=== PATIENT | female | born 1995 | race Caucasian/White ===

== ENCOUNTER 2018-09-26 16:23 | Emergency (ER) | payer OTHER ==
[~2018-09-26] VITALS: Ht 152.4 cm; Wt 44.1 kg
[2018-09-26] MEDS ORDERED: IBUP80TA PO (16:39)
[2018-09-26] MEDS ORDERED: IBUP-1022 PO (17:35)
[2018-09-26] MEDS ORDERED: MISO200T56 PO (17:39)
[2018-09-26] MEDS ORDERED: NORCO, ANEXSIA 5/325MG TABLET (HYDROcodone/ACETAMINOPHEN) PO ONE (18:00)
[2018-09-26 18:48] LABS: BASO % 0.1 % (0.0-1.0); EOS % 0.1 % (0.0-3.0); HEMATOCRIT 42.1 % (36.0-47.0); HEMOGLOBIN 13.8 g/dl (12.0-15.5); LYMPH # 0.9 10^3/uL (1.5-6.5); LYMPH % 6.6 % (24.0-44.0); MEAN CORPUSCULAR HEMOGLOBIN 28.1 pg (27.0-33.0); MEAN CORPUSCULAR HGB CONC 32.8 g/dl (32.0-36.5); MEAN CORPUSCULAR VOLUME 85.7 fl (80.0-96.0); MONO # 0.5 10^3/uL (0.0-0.8); MONO % 3.4 % (0.0-5.0); NEUTROPHILS # 12.3 10^3/uL (1.8-7.7); NEUTROPHILS % 89.5 % (36.0-66.0); PLATELET COUNT, AUTOMATED 304 10^3/uL (150-450); RED BLOOD COUNT 4.91 10^6/uL (4.00-5.40); WHITE BLOOD COUNT 13.7 10^3/uL (4.0-10.0)
[2018-09-26] MEDS ORDERED: NORCO 5/325MG TABLET (BULK FOR ED) PO ONE (19:15)
[2018-09-26 19:34] VITALS: BP 122/88
== END 2018-09-26 19:34 | disposition home or self-care (01) ==
LOC: M ED 16:23
DX: O02.0 Blighted ovum and nonhydatidiform mole (principal); R10.2 Pelvic and perineal pain; D72.829 Elevated white blood cell count, unspecified; M54.5 Low back pain; Z91.013 Allergy to seafood

== ENCOUNTER 2018-10-02 19:47 | Emergency (ER) | payer OTHER ==
[~2018-10-02] VITALS: Ht 152.4 cm; Wt 44.1 kg
[~2018-10-02 19:47] MED LIST: IBUP-1022 PO; IBUP80TA PO; MISO200T56 PO
[2018-10-02 20:51] LABS: BASO % 0.4 % (0.0-1.0); EOS # 0.1 10^3/uL (0.0-0.50); EOS % 0.5 % (0.0-3.0); HEMATOCRIT 37.3 % (36.0-47.0); HEMOGLOBIN 12.1 g/dl (12.0-15.5); LYMPH # 1.3 10^3/uL (1.5-6.5); LYMPH % 11.8 % (24.0-44.0); MEAN CORPUSCULAR HEMOGLOBIN 28.2 pg (27.0-33.0); MEAN CORPUSCULAR HGB CONC 32.4 g/dl (32.0-36.5); MEAN CORPUSCULAR VOLUME 86.9 fl (80.0-96.0); MONO # 0.6 10^3/uL (0.0-0.8); MONO % 5.5 % (0.0-5.0); NEUTROPHILS # 8.7 10^3/uL (1.8-7.7); NEUTROPHILS % 81.5 % (36.0-66.0); PLATELET COUNT, AUTOMATED 298 10^3/uL (150-450); RED BLOOD COUNT 4.29 10^6/uL (4.00-5.40); WHITE BLOOD COUNT 10.6 10^3/uL (4.0-10.0)
[2018-10-02 21:13] LABS: BLOOD UREA NITROGEN 9 MG/DL (7-18); CALCIUM LEVEL 8.2 MG/DL (8.5-10.1); CARBON DIOXIDE LEVEL 26 MEQ/L (21-32); CHLORIDE LEVEL 108 MEQ/L (98-107); CREATININE FOR GFR 0.75 MG/DL (0.55-1.30); GLOMERULAR FILTRATION RATE > 60.0 (>60); GLUCOSE, FASTING 78 MG/DL (70-100); HCG, SERUM QUANTITATIVE 604 MIU/ML; POTASSIUM SERUM 3.4 MEQ/L (3.5-5.1); SODIUM LEVEL 142 MEQ/L (136-145)
[2018-10-02] MEDS ORDERED: NS 500 ML IV ONE (22:15)
[2018-10-03 02:15] VITALS: BP 119/57
--- NOTE | 2018-10-03 21:18 | ECGEPIP ---
[facility] - ED Test Date: 2018-10-02 Pat Name: RAFFY SEWELL Department: Room: - Gender: Female Delicatessen Clerk: KCJosh : 1995 Requested By: MISTI Palaciso Order Number: [id number] Reading MD: Karen Mena Measurements Intervals [place] Rate: 60 P: 29 TN: 122 QRS: 70 QRSD: 86 T: 55 QT: 372 QTc: 374 Interpretive Statements SINUS RHYTHM NO PRIOR Electronically Signed on 10-03-2018 21:17:47 EDT by Karen Mena
== END 2018-10-03 03:15 | disposition home or self-care (01) ==
LOC: M ED 19:47
DX: I95.1 Orthostatic hypotension (principal); Z91.018 Allergy to other foods

== ENCOUNTER → 2019-02-02 | Day surgery (SDC) | payer OTHER ==
[~2019-02-02] VITALS: Ht 152.4 cm; Wt 45.7 kg
[~2019-02-02] MED LIST changes: +ACETAMINOPHEN 1000MG 100ML IV BTL (OFIRMEV) (J0131 PER 10MG) As Ordered ONE; +DOXYCYCLINE HYCLATE 100 MG TAB PO ONE; +DOXYCYCLINE HYCLATE 200 MG in D5W 250 ML IV ONE; +HYDROMORPHONE HCL 0.5 MG/ 0.5 ML SYRINGE (J1170 PER 1) IV PRN; +KETOROLAC 30 MG/ML VIAL (J1885) IV ONE; +KETOROLAC 60 MG/2 ML VIAL (J1885) As Ordered ONE; +LACRILUBE (AKWA TEARS) OPHTH OINT 3.5 GM As Ordered ONE; +LIDOCAINE 2% INJ 100 MG/5 ML SDV (FOR ANES.) As Ordered ONE; +LR 1,000 ML IV ONE; +LR 1,000 ML IV SCH; +MIDAZOLAM INJ 2 MG/2 ML VIAL (J2250) As Ordered ONE; +NALOXONE INJ 0.4 MG/1 ML VIAL (J2310) As Ordered ONE; +ONDANSETRON 4MG/2ML VIAL (J2405) As Ordered ONE; +ONDANSETRON 4MG/2ML VIAL (J2405) IV ONE; +ONDANSETRON 4MG/2ML VIAL (J2405) IV PRN; +PERCOCET 5MG/325MG TAB PO PRN; +PROMETHAZINE INJ 25 MG/ML VIAL (J2550) As Ordered ONE; +PROMETHAZINE INJ 25 MG/ML VIAL (J2550) IV ONE; +PROPOFOL 200 MG/20 ML VIAL As Ordered ONE; +SUCCINYLCHOLINE 100 MG/5 ML SYRINGE (J0330) As Ordered ONE; +dexameTHASONE 4 MG/ML 1ML VIAL (J1100) As Ordered ONE; +ePHEDrine SULFATE 25 MG/5 ML(5MG/ML) SYRINGE As Ordered ONE; +fentaNYL 100 MCG/2 ML INJECTION (J3010) IV PRN; +fentaNYL 250 MCG/5 ML INJECTION (J3010) As Ordered ONE; +oxyCODONE 5MG TAB As Ordered ONE; +oxyCODONE 5MG TAB PO ONE
[2019-02-02 06:36] LABS: HEMATOCRIT 39.7 % (36.0-47.0); HEMOGLOBIN 12.6 g/dl (12.0-15.5); MEAN CORPUSCULAR HEMOGLOBIN 26.8 pg (27.0-33.0); MEAN CORPUSCULAR HGB CONC 31.7 g/dl (32.0-36.5); MEAN CORPUSCULAR VOLUME 84.3 fl (80.0-96.0); PLATELET COUNT, AUTOMATED 259 10^3/uL (150-450); RED BLOOD COUNT 4.71 10^6/uL (4.00-5.40); WHITE BLOOD COUNT 7.2 10^3/uL (4.0-10.0)
[2019-02-02 15:30] VITALS: BP 102/58
--- NOTE | 2019-02-05 12:37 | RO ---
DATE OF PROCEDURE: 02/02/2019 PREOPERATIVE DIAGNOSIS: Missed . POSTOPERATIVE DIAGNOSIS: Missed . PROCEDURE: Suction dilation and curettage. SURGEON: Dr. Valdez. CITY CARRIER: None. ANESTHESIA: General. FLUIDS: 800 mL lactated ringers. URINE OUTPUT: 20 mL via straight cath. ESTIMATED BLOOD LOSS: 100 mL. COMPLICATIONS: None. ANTIBIOTICS: 100 mg doxycycline before the case, 200 mg doxycycline after the case. DETAILED PROCEDURE DESCRIPTION: The risks, benefits, indications and alternatives of the procedure were reviewed with the patient and informed consent was obtained. The patient was taken to the operating room where general anesthesia was obtained without difficulty. The patient was then placed in the lithotomy position using stirrups. An exam under anesthesia was performed and it was significant for a midline mobile 8 week size uterus. The patient was then prepped and draped in the usual sterile fashion. The bladder was drained using an in and out catheter. A surgical time out was then performed and the patient's identity and planned procedure were verified by the operative team. A sterile speculum was then placed in the patient's vagina and the cervix was visualized. A single tooth tenaculum was used to grasp the anterior lip of the cervix. The cervix was then gently, serially dilated to a size 18 Chinese with a Fidencio dilator. An 8 mm curved suction catheter was then introduced into the uterine cavity and then gently advanced to the uterine fundus. The suction device was then activated to 60 mmHg and the catheter was rotated to clear the uterus of the products of conception. 4 passes were performed with a moderate amount of tissue obtained. A gentle sharp curettage was then performed until a uterine cri was noted in all planes. Two more passes of the suction catheter were then performed with minimal tissue obtained. All tissue was sent to pathology for review and including tissue for chromosome analysis. The single toothed tenaculum was then removed from the anterior lip of the cervix. The tenaculum sites were noted to be hemostatic. The cervix was hemostatic as well. All instruments were then removed from the patient's vagina. The patient tolerated the procedure well. At the completion of the case the sponge, instrument and needle counts were correct times two. The patient was taken to the postanesthesia care unit in stable condition. [facility]
== END | disposition home or self-care (01) ==
LOC: M SDC 05:56
PROVIDERS: ATTEND Obstetrics & Gynecology
DX: O02.1 Missed abortion (principal); Z91.09 Other allergy status, other than to drugs and biological substances; Z91.013 Allergy to seafood

== ENCOUNTER 2020-04-15 14:54 | Outpatient (CLI) | payer OTHER ==
[~2020-04-15] VITALS: Ht 152.4 cm; Wt 62.5 kg
[~2020-04-15 14:54] MED LIST changes: -ACETAMINOPHEN 1000MG 100ML IV BTL (OFIRMEV) (J0131 PER 10MG) As Ordered ONE; -DOXYCYCLINE HYCLATE 100 MG TAB PO ONE; -DOXYCYCLINE HYCLATE 200 MG in D5W 250 ML IV ONE; -HYDROMORPHONE HCL 0.5 MG/ 0.5 ML SYRINGE (J1170 PER 1) IV PRN; -KETOROLAC 30 MG/ML VIAL (J1885) IV ONE; -KETOROLAC 60 MG/2 ML VIAL (J1885) As Ordered ONE; -LACRILUBE (AKWA TEARS) OPHTH OINT 3.5 GM As Ordered ONE; -LIDOCAINE 2% INJ 100 MG/5 ML SDV (FOR ANES.) As Ordered ONE; -LR 1,000 ML IV ONE; -LR 1,000 ML IV SCH; -MIDAZOLAM INJ 2 MG/2 ML VIAL (J2250) As Ordered ONE; -NALOXONE INJ 0.4 MG/1 ML VIAL (J2310) As Ordered ONE; -ONDANSETRON 4MG/2ML VIAL (J2405) As Ordered ONE; -ONDANSETRON 4MG/2ML VIAL (J2405) IV ONE; -ONDANSETRON 4MG/2ML VIAL (J2405) IV PRN; -PERCOCET 5MG/325MG TAB PO PRN; -PROMETHAZINE INJ 25 MG/ML VIAL (J2550) As Ordered ONE; -PROMETHAZINE INJ 25 MG/ML VIAL (J2550) IV ONE; -PROPOFOL 200 MG/20 ML VIAL As Ordered ONE; -SUCCINYLCHOLINE 100 MG/5 ML SYRINGE (J0330) As Ordered ONE; -dexameTHASONE 4 MG/ML 1ML VIAL (J1100) As Ordered ONE; -ePHEDrine SULFATE 25 MG/5 ML(5MG/ML) SYRINGE As Ordered ONE; -fentaNYL 100 MCG/2 ML INJECTION (J3010) IV PRN; -fentaNYL 250 MCG/5 ML INJECTION (J3010) As Ordered ONE; -oxyCODONE 5MG TAB As Ordered ONE; -oxyCODONE 5MG TAB PO ONE
[2020-04-15 15:20] VITALS: BP 137/94
[2020-04-15] MEDS ORDERED: PRENTAB9 PO (15:27)
[2020-04-15] MEDS ORDERED: MAPA500T2 PO (15:27)
[2020-04-15] MEDS ORDERED: CYCLOBENZAPRINE 10MG TABLET PO ONE (16:00)
--- NOTE | 2020-04-15 18:14 | IPNPDOC ---
Text Note Date of Service The patient was seen on 04/15/20. NOTE 24 yo at 38+3 weeks gestation presents to L&D with the complaint of midline low back pain, intermittent contractions, and vaginal discharge. This started earlier today and has gotten progressively worse. She denies any vaginal bleeding. She denies any headaches, RUQ pain, or visual changes. She endorses movement. She is scheduled for RLTCS on 26Apr2020, but would like to TOLAC if she goes into labor before then. Chaperoned by RN Vitals - BP 137/94, HR 120s initially, then 100, 100% O2 on RA, afebrile General - Sitting up in bed, AAOX3, NAD Abdomen - Gravid uterus, no fundal tenderness Pelvic - Normal external female genitalia. Speculum inserted into the vagina and the cervix was visualized. Scant, white discharge in the vaginal vault. Negative pooling. Negative leakage with valsalva. Swab obtained. Speculum removed. Cervix: cl/thick/high to digital exam. Repeat cervical exam 2 hours later demonstrated unchanged cervix at cl/thick/high. Back exam - Tenderness to palpation at lumbosacral junction. Tight paraspinal musculature. Microscopy - Negative ferning FHR tracing: Cat I with moderate variability, +accels, no decels. Intermittent contractions on toco. Patient given flexeril in triage for the back pain with significant improvement in symptoms. No evidence of ruptured membranes. Cervix closed and unchanged on exam 2 hours later. Flexeril ordered at [facility] for picker feeder. Suspect MSK pain mostly; not in labor. Though patient still desires TOLAC if she goes into labor before her c section date. She has a follow up growth scan tomorrow at [facility] for measuring S<D, and an appointment in the office on Thursday. Return to care sooner for any urgent concerns. All patient questions answered. 40 minutes of patient care DO MARTINA Johnson Fishbone, I+O Marvel MACK, I+O Vital Signs Date Time Temp Pulse Resp B/P (MAP) Pulse Ox O2 Delivery O2 Flow Rate FiO2 04/15/20 15:20 97.7 121 22 137/94 (108) Room Air TED DICKSON DO Apr 15, 2020 18:14
== END 2020-04-15 17:49 | disposition home or self-care (01) ==
LOC: M LDO 14:54
PROVIDERS: ATTEND Obstetrics & Gynecology
DX: O26.893 Other specified pregnancy related conditions, third trimester (principal); M54.89 Other dorsalgia; Z3A.38 38 weeks gestation of pregnancy
CPT/HCPCS: 59025; G0378; G0463

== ENCOUNTER 2020-04-16 00:08 | Inpatient (IN) | payer OTHER ==
[~2020-04-16] VITALS: Ht 152.4 cm; Wt 52.5 kg
[2020-04-16] VITALS (13 sets, daily range): BP systolic 99–125; BP diastolic 55–73
[~2020-04-16 00:08] MED LIST changes: +MAPA500T2 PO; +PRENTAB9 PO
[2020-04-16] MEDS ORDERED: ceFAZolin 2 GM/D5W 50 ML IV BAG (J0690 PER 500MG) As Ordered ONE (00:24)
[2020-04-16] MEDS ORDERED: BICITRA 30ML SOLN UDC As Ordered ONE (00:24)
[2020-04-16] MEDS ORDERED: AZITHROMYCIN INJ 500MG VIAL (J0456 PER 500MG) As Ordered ONE (00:25)
[2020-04-16] MEDS ORDERED: OXYTOCIN DRIP 30 UNITS in IV 1 EA IV SCH (00:28)
[2020-04-16] MEDS ORDERED: ACETAMINOPHEN TAB 650MG DOSE (2X325MG) PO PRN (00:30)
[2020-04-16] MEDS ORDERED: BENZOCAINE 20% HEMORRHOIDAL OINTMENT 28GM TUBE TOP PRN (00:30)
[2020-04-16] MEDS ORDERED: PROMETHAZINE 25 MG TAB PO PRN (00:30)
[2020-04-16] MEDS ORDERED: RHOGAM 300 MCG (1500 IU) INJ (J2790) IM SCH (00:30)
[2020-04-16] MEDS ORDERED: ceFAZolin SOD 2 GM in IV 1 EA IV ONE (00:30)
[2020-04-16] MEDS ORDERED: AZITHROMYCIN INJ 500 MG, VIAL MATE ADAPTER 1 EACH in D5W 250 ML IV ONE (00:30)
[2020-04-16] MEDS ORDERED: IBUPROFEN 600MG TAB PO PRN (00:30)
[2020-04-16] MEDS ORDERED: MEASLES,MUMPS,RUBELLA VACCINE INJ (MMR-II) (90707) SC SCH (00:30)
[2020-04-16] MEDS ORDERED: BICITRA 30ML SOLN UDC PO ONE (00:30)
[2020-04-16 00:34] LABS: HEMATOCRIT 37.6 % (36.0-47.0); HEMOGLOBIN 11.4 g/dl (12.0-15.5); MEAN CORPUSCULAR HEMOGLOBIN 24.7 pg (27.0-33.0); MEAN CORPUSCULAR HGB CONC 30.3 g/dl (32.0-36.5); MEAN CORPUSCULAR VOLUME 81.4 fl (80.0-96.0); PLATELET COUNT, AUTOMATED 295 10^3/uL (150-450); RED BLOOD COUNT 4.62 10^6/uL (4.00-5.40); WHITE BLOOD COUNT 16.8 10^3/uL (4.0-10.0)
[2020-04-16] MEDS ORDERED: OXYTOCIN 30 UNITS IN 0.9% NaCl 500ML IV BAG (J2590) As Ordered ONE (00:37)
--- NOTE | 2020-04-16 01:18 | DNPDOC ---
[facility] Delivery Note Delivery Note DATE OF DELIVERY: 16Apr2020 at ~0040 PREDELIVERY DIAGNOSIS: 38+4 weeks gestation and active labor. Desire for TOLAC. POST DELIVERY DIAGNOSIS: Delivered. PROCEDURE: Vaginal after Section ADMINISTRATIVE PROJECT COORDINATOR: Dr. Valdez ANESTHESIA: Epidural. ESTIMATED BLOOD LOSS: 200 mL. FINDINGS: 5 pound 7 ounce female infant, Score 8/8, loose nuchal cord X1 DELIVERY SUMMARY: Presented to room as Lulú presented to L&D with significantl y painful contractions. She was examined and initially found to be 6cm but then progressed rapidly to C/C/+3. I counseled her and offered her TOLAC or RLTCS. She initially desired RLTCS, but then strongly verbalized the desire to proceed with TOLAC when she realized how quickly she had progressed. She started pushing. The bed was broken down and she was prepped for delivery. With excellent effort over only about 2 minutes of pushing, her baby delivered. Presentation was GRADY with restitution to [facility]. There was a loose nuchal cord that was delivered through and reduced manually. The right anterior shoulder delivered with gentle traction followed easily by the remainder of the body. The infant was dried and stimulated on the field and a bulb suction was used. The was placed on the maternal abdomen and cried vigorously. The three vessel umbilical cord was then clamped and cut by me after appropriate time delay. Cord blood samples for gases were obtained. Third stage was completed with gentle traction on on the cord and it was productive of an intact placenta. The uterus was firmed with massage and pitocin was administered IV bolus. Inspection of the cervix, vagina, labia, and perineum revealed bilateral sublabial lacerations. These were repaired with 4-0 vicryl suture in the usual fashion after injection of lidocaine for analgesia. There was excellent cosmesis and hemostasis after the repairs. The fundus was palpated again and was firm. Sponge, instrument, and needle counts were correct X2. Mother and stable when I left the room. DO RANDOLPH Johnson CHRISTOPHER J. DO Apr 16, 2020 01:18
--- NOTE | 2020-04-16 01:29 | HPEPDOC ---
Obstetrical History & Physical General Date of Admission Apr 16, 2020 at 00:18 History of Present Illness 24 yo at 38+4 weeks gestation presented to L&D in active labor and precipitously delivered her infant. See delivery note for details. Chief Complaint: Contractions, term Information Provided By: Patient Age: 24 : 5 Term: 2 Pre-term: 0 Abortions: 2 Livin Care Care: Good Care Dating Final EDC: Apr 26, 2020 Final EDC for Daily Update: Apr 26, 2020 Final EDC by: LMP (PRICE of [id number] set by LMP of [id number] c/w 8+3 week US on [id number]) Antepartum Course Diagnos(e)s section X2 Mild anemia Varicella Non immune Past Medical History Past Obstetrical History : Past Obstetrical History: Multigravida (, C/S X2, SAB X2, G5 - current ) HEALTH IT SPECIALIST History: Spontaneous (SAB X2) Past Medical History Medical History Mild anemia Surgical History: section ( section X2, D+C X1) Family History Significant Family History: No pertinent family hx Social History Marital Status: Family situation: Spouse/partner home Psychosocial History: No pertinent psych hx * Smoker: non-smoker Alcohol: Denies Drugs: denies Imunizations Tdap status: current Influenza Status: needs Allergies Coded Allergies: scallops (Verified Allergy, Severe, anaphylaxis, 04/15/20) Gold Salts (Verified Allergy, Mild, RASH, 04/15/20) Medications Scheduled No.137/Iron/Folic Acd ( Vitamin Tablet) 1 Each Tablet, 1 TAB PO DAILY Miscellaneous Medications Acetaminophen (Mapap) 500 Mg Tablet, 1,000 MG PO Physical Examination Physical Examination GENERAL: Alert and oriented times three. Painfully gladys. ABDOMEN: Gravid and non-tender to touch. FETUS: Is vertex (VTX) by sterile vaginal examination (SVE) EXTREMITIES: No edema. Laboratory Data 24H LABS Laboratory Tests 2 04/16/20 00:29: Nucleated Red Blood Cells % (auto) 0.0 04/16/20 00:37: Serology Scanned Report Hepatitis B Testing CBC/BMP Laboratory Tests 04/16/20 00:29 Urine Culture: No Growth, Urinary Tract Infection (treated) Pertinent Laboratoy Data Blood Type: A+ RBC Antibody Screen: Negative HIV: Negative Hepatitis B: Negative Hepatitis C: Unknown Rapid Plasma Reagin: Nonreactive Rubella: Immune Varicella: Nonreactive Chlamydia/Gonorrhea: Negative Group B Streptococcus: Negative Quad Screen Test: Negative Cystic Fibrosis: Unknown Glucose Tolerance Test: 116 Anatomy Ultrasound Placenta Location: Anterior Normal Anatomy: Yes Placenta Previa: No Steroid Therapy Steroid Therapy: No Vaginal Examination Dilation: complete Effacement: 100% Station: +3 Cervical Consistency: Soft Cervical Position: Anterior Presentation: Cephalic presentation Position: Vertex (occiput) Assessment Heart Rate (FHR): 125 Variability: Moderate Accelerations: Positive Decelerations: Variable Tocometer Contractions: Yes Frequency: regular Strength: palpated as strong Assessment/Plan Assessment 24 yo at 38+4 weeks gestation presented to L&D in fulminant labor and precipitously delivered her baby via successful . Plan Patient precipitously delivered her infant via successful . See delivery note for details. Plan for routine care. Placenta sent to pathology due to small for gestational age vs IUGR. TED DICKSON DO Apr 16, 2020 01:29
[2020-04-16] MEDS ORDERED: LIDOCAINE 1% MDV 20ML VIAL IM ONE (01:30)
[2020-04-16 01:39] LABS: CORD GAS ABE A -6.2; CORD GAS ABE V -6.2; CORD GAS HCO3 A 21.6 MEQ/L; CORD GAS O2 SAT A 71.3 %; CORD GAS O2 SAT V 48.6 %; CORD GAS PCO2 A 50.9 mmHg; CORD GAS PCO2 V 47.5 mmHg; CORD GAS PH A 7.246 UNITS; CORD GAS PH V 7.264 UNITS; CORD GAS PO2 V 22.4 mmHg; CORD GAS SBC A 18.8 MEQ/L; CORD GAS SBC V 18.3 MEQ/L; CORD GAS TCO2 A 23.2 MEQ/L; CORD GAS TCO2 V 22.5 MEQ/L
[2020-04-16] MEDS: IBUPROFEN 800 MG TAB PO PRN ×2 (04:06→15:24)
[2020-04-16] MEDS: PRENATAL VITAMINS CHEWABLE TABLET PO SCH (08:43)
[2020-04-16] MEDS: ACETAMINOPHEN 500 MG TAB PO PRN (08:44)
[2020-04-16] MEDS: DOCUSATE SODIUM 100MG CAPSULE PO PRN (19:42)
[2020-04-17 06:00] VITALS: BP 116/66
[2020-04-17 07:15] VITALS: BP 129/73
--- NOTE | 2020-04-17 08:37 | IPNPDOC ---
Progress Note Date of Service: Apr 17, 2020 Day#: 1 Progress Note SUBJECT: Lluú is a 24yo s/p precipitous with successful VBA2C, do ing well day #1. She has been ambulating, voiding spontaneously without issue and tolerating regular diet. She is breast-feeding without difficulty. Reports lochia is decreasing. Patient is ambulating well. Pain well- controlled on motrin/tylenol. OBJECTIVE: VITAL SIGNS: Within normal limits, afebrile. Alert and oriented times three. Abdomen: Fundus firm at U-1. Soft, NTTP. Ext: no calf tenderness ASSESSMENT: Lulú is a 24yo s/p precipitous with successful VBA2C, doing well day #1. Vitals within normal limits, afebrile, hemodynamically stable with no evidence of infection. PLAN: 1. Discharge to home tomorrow. 2. Tylenol and Motrin for pain. 3. Encourage regular diet and ambulation. 4. Encourage , support PRN 5. Routine PP visit in 6 weeks in clinic. 6. Discussed return precautions at length. VS, I&O, 24H, Fishbone Vital Signs/I&O Vital Signs Date Time Temp Pulse Resp B/P (MAP) Pulse Ox O2 Delivery O2 Flow Rate FiO2 04/17/20 06:00 98.6 84 16 116/66 (83) MILAD LEZAMA DO Apr 17, 2020 08:37
[2020-04-17] MEDS: PRENATAL VITAMINS CHEWABLE TABLET PO SCH (08:43)
[2020-04-17] MEDS: ACETAMINOPHEN 500 MG TAB PO PRN ×2 (08:44→20:11)
[2020-04-17 11:30] VITALS: BP 129/76
[2020-04-17] MEDS: IBUPROFEN 800 MG TAB PO PRN (15:20)
[2020-04-17 18:01] VITALS: BP 123/76
[2020-04-17] MEDS: DOCUSATE SODIUM 100MG CAPSULE PO PRN (20:10)
[2020-04-18] MEDS: IBUPROFEN 800 MG TAB PO PRN (05:27)
[2020-04-18 05:57] VITALS: BP 126/86
[2020-04-18] MEDS ORDERED: DOK1CAP7 PO (07:33)
[2020-04-18] MEDS ORDERED: IBUP-1022 PO (07:33)
[2020-04-18] MEDS: PRENATAL VITAMINS CHEWABLE TABLET PO SCH (09:22)
--- NOTE | 2020-04-18 10:40 | DSES ---
DISCHARGE SUMMARY DATE OF ADMISSION: 04/16/2020 DATE OF DISCHARGE: 04/18/2020 BRIEF HISTORY: A 24-year-old 5 now para 3, admitted in spontaneous labor at 38 and 4 weeks gestation, was desiring a TOLAC, she had a precipitous delivery of a female , 5 pounds, 7 ounces, Apgars of 8 and 8 at 1 and 5 minutes respectively, cord around the neck x1. Arterial pH 7.24, base excess -6.2, venous pH 7.26. On her second day we discussed phlebitis, cystitis, mastitis, endometritis and cellulitis, diet, exercise, pain management, perineal and breast care. She has no rashes or lesions, no arthritis, no arthralgias, no complaints of cough, wheeze or shortness of breath. No dyspnea on exertion. No nausea, vomiting, diarrhea or constipation. No urgency or frequency. Her admitting hemoglobin was 11.4, hematocrit 37.6 and platelets were 295,000. PHYSICAL EXAMINATION: Her vital signs on discharge: Blood pressure 126/86, respirations 18, pulse 86, temperature 98.5. 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 Discussion about control will take place at that time. All questions were answered, a 20 minute discussion. Patient was discharged improved. cc: [facility]
== END 2020-04-18 13:10 | disposition home or self-care (01) | DRG 807 ==
LOC: M LDO 00:08 → M LDI 00:18 → M OBS 03:02
PROVIDERS: ADMIT Obstetrics & Gynecology; ATTEND Obstetrics & Gynecology
PROC: 10E0XZZ Delivery of Products of Conception, External Approach (ICD-10-PCS; principal; 2020-04-17)
PROC: 0HQ9XZZ Repair Perineum Skin, External Approach (ICD-10-PCS; 2020-04-17)
DX: O62.3 Precipitate labor (principal); Z37.0 Single live birth; Z3A.38 38 weeks gestation of pregnancy; O34.211 Maternal care for low transverse scar from previous cesarean delivery; O99.02 Anemia complicating childbirth; D64.9 Anemia, unspecified; O69.81X0 Labor and delivery complicated by cord around neck, without compression, not applicable or unspecified; O70.0 First degree perineal laceration during delivery

== ENCOUNTER 2020-10-03 12:24 | Inpatient (IN) | payer OTHER ==
[~2020-10-03] VITALS: Ht 152.4 cm; Wt 56.5 kg
[~2020-10-03 12:24] MED LIST changes: +DOK1CAP7 PO
[2020-10-03] MEDS ORDERED: ONDANSETRON 4MG/2ML VIAL IV ONE (14:20)
[2020-10-03] MEDS ORDERED: NS 1,000 ML IV ONE (14:30)
[2020-10-03 14:32] LABS: BASO # 0.1 10^3/uL (0.0-0.2); BASO % 0.3 % (0.0-1.0); EOS % 0.1 % (0.0-3.0); HEMATOCRIT 41.4 % (36.0-47.0); HEMOGLOBIN 13.4 g/dl (12.0-15.5); LYMPH # 0.9 10^3/uL (1.5-5.0); LYMPH % 5.4 % (24.0-44.0); MEAN CORPUSCULAR HEMOGLOBIN 27.9 pg (27.0-33.0); MEAN CORPUSCULAR HGB CONC 32.4 g/dl (32.0-36.5); MEAN CORPUSCULAR VOLUME 86.3 fl (80.0-96.0); MONO # 0.7 10^3/uL (0.0-0.8); MONO % 4.6 % (2.0-8.0); NEUTROPHILS # 14.2 10^3/uL (1.5-8.5); NEUTROPHILS % 89.2 % (36.0-66.0); PLATELET COUNT, AUTOMATED 282 10^3/uL (150-450); WHITE BLOOD COUNT 15.9 10^3/uL (4.0-10.0)
[2020-10-03] MEDS ORDERED: KETOROLAC 30 MG/ML 1ML VIAL As Ordered ONE (14:32)
[2020-10-03 14:56] LABS: ALBUMIN 4.1 GM/DL (3.2-5.2); ALT/SGPT 27 U/L (12-78); BILIRUBIN,DIRECT 0.3 MG/DL (0.0-0.2); BILIRUBIN,TOTAL 1.6 MG/DL (0.2-1.0); BLOOD UREA NITROGEN 12 MG/DL (7-18); CALCIUM LEVEL 8.8 MG/DL (8.5-10.1); CARBON DIOXIDE LEVEL 24 MEQ/L (21-32); CHLORIDE LEVEL 107 MEQ/L (98-107); CREATININE FOR GFR 0.59 MG/DL (0.55-1.30); GLOMERULAR FILTRATION RATE > 60.0 (>60); GLUCOSE, FASTING 97 MG/DL (70-100); LIPASE 62 U/L (73-393); POTASSIUM SERUM 3.6 MEQ/L (3.5-5.1); SODIUM LEVEL 140 MEQ/L (136-145); TOTAL PROTEIN 7.2 GM/DL (6.4-8.2)
[2020-10-03] MEDS ORDERED: KETOROLAC 30 MG/ML 1ML VIAL IV ONE (15:00)
--- NOTE | 2020-10-03 15:06 | REP ---
INDICATION: right flank pain. COMPARISON: None. TECHNIQUE: Noncontrast enhanced stone protocol technique due right flank pain FINDINGS: The lung bases are clear. Limited evaluation of the solid intra-abdominal organs and gallbladder show no gross abnormalities. There are no cholelith. There are are too calcifications within or just at the ureterovesical junction on the right. There is severe right-sided hydronephrosis and hydroureter. Within the distal ureter proximal to the UV junction by approximately 5-6 cm there is an oval-shaped 7 mm sized calcification. There are numerous bilateral nephroliths not causing obstructive phenomena as well. There is a moderate amount of free pelvic fluid. There is no gross bowel loop or mesenteric abnormality noted. The osseous structures are within normal limits. IMPRESSION: 1. Large distal right ureterolith as described above. 2. Evidence of 2 additional calculi at the level of the right ureterovesical junction. 3. Right-sided hydronephrosis and hydroureter secondary to the aforementioned obstructive phenomena. 4. Multiple bilateral nephroliths and having the appearance of medullary sponge kidney. 5. Other findings as described above. <Electronically signed by Ketan White > 10/03/20 1201
[2020-10-03] MEDS ORDERED: cefTRIAXone SOD 1 GM in D5W MINI-BAG PLUS 50 ML IV ONE (17:25)
[2020-10-03] MEDS ORDERED: VITMTA PO (17:35)
[2020-10-03] MEDS ORDERED: COLLAGEN PO (17:35)
[2020-10-03] MEDS ORDERED: CONRAY-60 60% 50ML VIAL (Q9961) As Ordered ONE (17:52)
[2020-10-03] MEDS ORDERED: PERCOCET 5MG/325MG TAB PO PRN (18:10)
[2020-10-03] MEDS ORDERED: MORPHINE 2 MG/ML 1ML VIAL (J2270) IV PRN (18:10)
[2020-10-03 18:14] LABS: RSV AMPLIFICATION NEGATIVE (NEGATIVE)
[2020-10-03] MEDS: NS 0.45% 1,000 ML IV SCH ×2 (18:39→22:07)
--- NOTE | 2020-10-03 18:43 | HPEPDOC ---
[facility] Medical History & Physical Date of Admission Oct 03, 2020 Date of Service: Oct 03, 2020 Attending Physician: ANDREW LAZCANO MD History and Physical CHIEF COMPLAINT: right flank pain HISTORY OF PRESENT ILLNESS: Lulú is 25F who presented to ED w/ right flank pain that began 4days ago and has been worsening. She describes pain as sharp, 8-10/10, radiating to right back and right abd. She took 800 Ibuprofen today w/out relief. She tells me pain has been well-controlled in ED and reports 4/10 at this time. Reports associated nausea, bilious vomiting, diarrhea. Denies prior episodes. Reports pain- associated tingling in b/l hands and feet, difficulty breathing. Reports hematuria, frequent voiding w/out dysuria. PAST MEDICAL HISTORY: Reviewed and no significant medica problems reported PAST SURGICAL HISTORY: 1. x2 2. 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 REVIEW OF SYSTEMS: CONSTITUTIONAL: fevers/chills, sweats HEENT: dizziness CARDIOVASCULAR: No chest pain RESPIRATORY: SOB. No wheezing GASTROINTESTINAL: n/v, abd pain, diarrhea. No constipation. GENITOURINARY: Frequent voiding, hematuria. No malodor NEUROLOGICAL: tingling b/l hands and feet. No weakness HOME MEDICATIONS: Please see below. PHYSICAL EXAMINATION: VITAL SIGNS: Temperature 97.2, pulse 98, respiratory rate 20, blood pressure 117/76, pulse oximetry 99% on room air. GENERAL APPEARANCE: laying in bed, NAD, alert and awake HEENT: NC/AT, nares patent, moist mucous membranes CARDIOVASCULAR: normal heart sounds, RRR, no MRG LUNGS: CTA b/l, no WRR, no accessory muscles used ABDOMEN: normal BS, soft, nontender, min guarding w/ deep palpation MUSCULOSKELETAL: normal ROM EXTREMITIES: no edema NEUROLOGICAL: CNIII-XII intact, no FND< motor strength 5/5 PSYCHIATRIC: AOx3, normal mood/affect LABORATORY DATA: See below. IMAGING: CT abd/pelvis: 1. Large distal right ureterolith as described above. 2. Evidence of 2 additional calculi at the level of the right ureterovesical junction. 3. Right-sided hydronephrosis and hydroureter secondary to the aforementioned obstructive phenomena. 4. Multiple bilateral nephroliths and having the appearance of medullary sponge kidney. 5. Other findings as described above. MICROBIOLOGY: Urine cx, pending Blood cx, pending ASSESSMENT/PLAN: 25F w/ worsening right flank pain found to have right hydronephrosis w/ multiple stones who will undergo surgery today for stone removal and/or stent placement. #Hydronephrosis Discussed with Urology (Dr. Anderson) plan for surgery today. Start NS Morphine, Percocet PRN for pain control Zofran PRN On Ceftriaxone, day1 Review blood cx Review lactic acid Monitor labs #DVT Prophylaxis TEDs and sequentials DISPO: home, expect to spend 1 midnight Activity as tolerated NPO, pending surgery today Vital Signs Vital Signs Date Time Temp Pulse Resp B/P (MAP) Pulse Ox O2 Delivery O2 Flow Rate FiO2 10/03/20 14:20 20 10/03/20 12:32 97.2 98 99 Room Air Laboratory Data Labs 24H Laboratory Tests 2 10/03/20 14:08: POC Beta HCG, Quantitative < 5.0 10/03/20 14:16: Immature Granulocyte % (Auto) 0.4, Neutrophils (%) (Auto) 89.2H, Lymphocytes (%) (Auto) 5.4L, Monocytes (%) (Auto) 4.6, Eosinophils (%) (Auto) 0.1, Basophils (%) (Auto) 0.3, Neutrophils # (Auto) 14.2H, Lymphocytes # (Auto) 0.9L, Monocytes # (Auto) 0.7, Eosinophils # (Auto) 0.0, Basophils # (Auto) 0.1, Nucleated Red Blood Cells % (auto) 0.0, Anion Gap 9, Glomerular Filtration Rate > 60.0, Calcium Level 8.8, Total Bilirubin 1.6H, Direct Bilirubin 0.3H, Aspartate Amino Transf (AST/SGOT) 19, Alanine Aminotransferase (ALT/SGPT) 27, Alkaline Phosphatase 134H, Total Protein 7.2, Albumin 4.1, Albumin/Globulin Ratio 1.3, Lipase 62L 10/03/20 16:31: Urine Color YELLOW, Urine Appearance CLOUDYH, Urine pH 7.0, Urine Specific Ramsay 1.017, Urine Protein 1+H, Urine Glucose (UA) NEGATIVE, Urine Ketones 2+H, Urine Blood 1+H, Urine Nitrite NEGATIVE, Urine Bilirubin NEGATIVE, Urine Urobilinogen 4.0H, Urine Leukocyte Esterase NEGATIVE, Urine WBC (Auto) 13H, Urine RBC (Auto) 43H, Urine Hyaline Casts (Auto) 0, Urine Bacteria (Auto) 1+H, Urine Squamous Epithelial Cells 9, Urine Mucus (Auto) MODERATE, Urine Sperm (Auto) 10/03/20 17:30: Coronavirus (COVID-19)(PCR) NEGATIVE, Influenza Type A (RT-PCR) NEGATIVE, Influenza Type B (RT-PCR) NEGATIVE, Respiratory Syncytial Virus (PCR) NEGATIVE CBC/BMP Laboratory Tests 10/03/20 14:16 Microbiology Microbiology 10/03/20 Urine Culture, Received Pending Home Medications Scheduled Multivitamins (Thera M Plus Tablet) 1 Each Tablet, 1 TAB PO DAILY [Collagen] , 1 SCOOP PO DAILY Allergies Coded Allergies: scallops (Verified Allergy, Severe, anaphylaxis, 04/15/20) Gold Salts (Verified Allergy, Mild, RASH, 04/15/20) A-FIB/CHADSVASC A-FIB History Current/History of A-Fib/PAF?: No GME ATTESTATION GME ATTESTATION My faculty preceptor for this patient encounter was physically present during the encounter and was fully available. All aspects of the patient interview, examination, medical decision making process, and medical care plan development were reviewed and approved by the faculty preceptor. The faculty preceptor is aware and concurs with the plan as stated in the body of this note and will attest to such by his/her cosignature. ATTENDING NOTE I, Andrew Lazcano, have independently examined this patient and performed my own physical exam, as well as reviewed the documentation and edited where necessary. I have discussed in detail with the resident / student the findings and plan of treatment as documented by the resident / student and edited their note. I agree with their findings and treatment plan and have edited their documentation. I will continue to follow the patient during this hospital stay. Esperanza Massey DO Oct 03, 2020 18:43 ANDREW LAZCANO MD Oct 04, 2020 08:43
--- NOTE | 2020-10-03 18:44 | SMCUROLCON ---
Urology Consultation General Date of Consultation 10/03/20 Reason For Consultation This patient is seen for Hydronephrosis Right, Ureterolithiasis. History of Present Illness This is a 25 y/o F w/ no significant PMH, who presented to the ER w/ severe R flank/abd pain. She notes that the pain started this past weekend and has gradually gotten worse up to today. She notes having nausea and vomiting as wel l as fevers and chills at home. She denies dysuria or hematuria. On CT A/P obtained in the ER she was found to have severe R hydroureteronephrosis secondary to 3 stones in the distal R ureter. There was also b/l nephrocalcinosis as well as a 4-5mm stone in the R kidney. At the time of my visit w/ her, she noted her pain was a little better. She has no previous history of kidney stones. Past Medical History Medical History None Surgical Hstory C section x2 Medications Current Medications Current Medications Medications (Trade) Dose Ordered Sig/Dee Route PRN Reason Start Time Stop Time Status Last Admin Dose Admin Home Med (Med Rec Complete!) ASDIRECTED XX 10/03/20 17:35 10/03/20 17:38 DC Morphine Sulfate (Morphine Sulfate Inj) 2 mg Q6H PRN IV MODERATE PAIN (PS 5-7) 10/03/20 18:10 UNV Oxycodone/ Acetaminophen (Percocet 5mg/ 325mg Tablet) 1 tab Q6HP PRN PO MODERATE PAIN (PS 5-7) 10/03/20 18:10 UNV Sodium Chloride 1,000 ml @ 100 mls/hr Q10H IV 10/03/20 18:10 Allergies Allergies: Coded Allergies: scallops (Verified Allergy, Severe, anaphylaxis, 04/15/20) Gold Salts (Verified Allergy, Mild, RASH, 04/15/20) Review of Systems Constitutional: Reports: Fever (at home), Chills (at home) Pulmonary: Denies: Dyspnea, Cough Cardiovascular: Denies Chest Pain, Denies Palpitations Gastrointestinal: Reports: Nausea, Vomiting, Abdominal Pain (RLQ) Genitourinary: Denies: Dysuria, Frequency, Incontinence, Hematuria Musculoskeletal: Reports: Back Pain (R flank) Psych: Reports: Mood Normal Physical Examination General Exam: Alert, Cooperative, No Acute Distress Chest Exam: Normal air movement Heart Exam: Rate Normal Abdomen Exam: Soft, Tenderness (mild RLQ) Skin Exam: Nl turgor and temperature Neuro Exam: Normal Speech Psych Exam: Mental status NL, Mood NL Vital Signs/I&O Vital Signs Date Time Temp Pulse Resp B/P (MAP) Pulse Ox O2 Delivery O2 Flow Rate FiO2 10/03/20 14:20 20 10/03/20 12:32 97.2 98 99 Room Air Laboratory Data 24H Labs Laboratory Tests 2 10/03/20 14:08: POC Beta HCG, Quantitative < 5.0 10/03/20 14:16: Immature Granulocyte % (Auto) 0.4, Neutrophils (%) (Auto) 89.2H, Lymphocytes (%) (Auto) 5.4L, Monocytes (%) (Auto) 4.6, Eosinophils (%) (Auto) 0.1, Basophils (%) (Auto) 0.3, Neutrophils # (Auto) 14.2H, Lymphocytes # (Auto) 0.9L, Monocytes # (Auto) 0.7, Eosinophils # (Auto) 0.0, Basophils # (Auto) 0.1, Nucleated Red Blood Cells % (auto) 0.0, Anion Gap 9, Glomerular Filtration Rate > 60.0, Calcium Level 8.8, Total Bilirubin 1.6H, Direct Bilirubin 0.3H, Aspartate Amino Transf (AST/SGOT) 19, Alanine Aminotransferase (ALT/SGPT) 27, Alkaline Phosphatase 134H, Total Protein 7.2, Albumin 4.1, Albumin/Globulin Ratio 1.3, Lipase 62L 10/03/20 16:31: Urine Color YELLOW, Urine Appearance CLOUDYH, Urine pH 7.0, Urine Specific [place] 1.017, Urine Protein 1+H, Urine Glucose (UA) NEGATIVE, Urine Ketones 2+H, Urine Blood 1+H, Urine Nitrite NEGATIVE, Urine Bilirubin NEGATIVE, Urine Urobilinogen 4.0H, Urine Leukocyte Esterase NEGATIVE, Urine WBC (Auto) 13H, Urine RBC (Auto) 43H, Urine Hyaline Casts (Auto) 0, Urine Bacteria (Auto) 1+H, Urine Squamous Epithelial Cells 9, Urine Mucus (Auto) MODERATE, Urine Sperm (Auto) 10/03/20 17:30: Coronavirus (COVID-19)(PCR) NEGATIVE, Influenza Type A (RT-PCR) NEGATIVE, Influenza Type B (RT-PCR) NEGATIVE, Respiratory Syncytial Virus (PCR) NEGATIVE CBC/BMP Laboratory Tests 10/03/20 14:16 Microbiology Microbiology 10/03/20 Urine Culture, Received Pending Assessment This is a 25 y/o F w/ severe R hydroureteronephrosis 2/2 three stones in the distal R ureter. I recommended that we take her to the OR this evening for cystoscopy, R ureteroscopy w/ laser lithotripsy, and R ureteral stent placement. After a discussion of the risks and benefits of the procedure, informed consent was signed. Plan - patient being admitted to hospitalist service - to OR this evening - rocephin given in the ER - NPO until surgery ZACH PUGA MD Oct 03, 2020 18:43
[2020-10-03] MEDS ORDERED: fentaNYL 100 MCG/2 ML INJECTION (J3010) As Ordered ONE (19:20)
[2020-10-03] MEDS ORDERED: MIDAZOLAM INJ 2MG/2ML VIAL (J2250 PER 1MG) As Ordered ONE (19:20)
[2020-10-03] MEDS ORDERED: LIDOCAINE 2% 100MG/5ML SDV (FOR ANES.) As Ordered ONE (19:21)
[2020-10-03] MEDS ORDERED: propofoL 200 MG/20 ML VIAL As Ordered ONE ×2 (19:21→19:41)
[2020-10-03] MEDS ORDERED: DESFLURANE 240 ML INHALANT As Ordered ONE (19:24)
[2020-10-03] MEDS ORDERED: ONDANSETRON 4MG/2ML VIAL As Ordered ONE (19:30)
[2020-10-03] MEDS ORDERED: ACETAMINOPHEN 1000MG 100ML IV BTL (OFIRMEV) (J0131 PER 10MG) As Ordered ONE (19:30)
[2020-10-03] MEDS ORDERED: METOCLOPRAMIDE INJ 10MG/2ML VIAL (J2765 PER 1) As Ordered ONE (19:30)
[2020-10-03] MEDS ORDERED: dexameTHASONE 4 MG/ML 1ML VIAL (J1100 PER 1MG) As Ordered ONE (19:30)
[2020-10-03] MEDS ORDERED: HYDROMORPHONE HCL 0.5 MG/ 0.5 ML SYRINGE (J1170 PER 1) IV PRN (21:00)
[2020-10-03] MEDS ORDERED: fentaNYL 100 MCG/2 ML INJECTION (J3010) IV PRN (21:00)
[2020-10-03] MEDS ORDERED: ONDANSETRON 4MG/2ML VIAL IV PRN (21:00)
[2020-10-03] MEDS ORDERED: oxyCODONE 5MG TAB PO PRN (21:00)
[2020-10-03] MEDS: LR 1,000 ML IV SCH ×2 (21:14→21:51)
[2020-10-03 21:39] VITALS: BP 109/66
[2020-10-03 23:00] VITALS: BP 106/63
[2020-10-03] MEDS ORDERED: NS 0.45% 250 ML IV ONE (23:00)
[2020-10-04] VITALS: BP 98/60
[2020-10-04] MEDS ORDERED: NS 500 ML IV ONE (00:35)
[2020-10-04 01:00] VITALS: BP 99/60
[2020-10-04 02:00] VITALS: BP 99/60
[2020-10-04 06:00] VITALS: BP 111/66
[2020-10-04 06:51] LABS: BASO % 0.1 % (0.0-1.0); HEMATOCRIT 37.3 % (36.0-47.0); HEMOGLOBIN 12.2 g/dl (12.0-15.5); LYMPH # 0.6 10^3/uL (1.5-5.0); LYMPH % 6.8 % (24.0-44.0); MEAN CORPUSCULAR HEMOGLOBIN 28.3 pg (27.0-33.0); MEAN CORPUSCULAR HGB CONC 32.7 g/dl (32.0-36.5); MEAN CORPUSCULAR VOLUME 86.5 fl (80.0-96.0); MONO # 0.2 10^3/uL (0.0-0.8); MONO % 1.9 % (2.0-8.0); NEUTROPHILS % 90.9 % (36.0-66.0); PLATELET COUNT, AUTOMATED 249 10^3/uL (150-450); RED BLOOD COUNT 4.31 10^6/uL (4.00-5.40); WHITE BLOOD COUNT 8.8 10^3/uL (4.0-10.0)
[2020-10-04] MEDS: NS 0.45% 1,000 ML IV SCH (06:52)
[2020-10-04 07:11] LABS: BLOOD UREA NITROGEN 8 MG/DL (7-18); CALCIUM LEVEL 8.4 MG/DL (8.5-10.1); CARBON DIOXIDE LEVEL 21 MEQ/L (21-32); CHLORIDE LEVEL 110 MEQ/L (98-107); CREATININE FOR GFR 0.47 MG/DL (0.55-1.30); GLOMERULAR FILTRATION RATE > 60.0 (>60); GLUCOSE, FASTING 106 MG/DL (70-100); MAGNESIUM LEVEL 2.1 MG/DL (1.8-2.4); POTASSIUM SERUM 3.9 MEQ/L (3.5-5.1); SODIUM LEVEL 138 MEQ/L (136-145)
--- NOTE | 2020-10-04 08:10 | RO ---
OPERATIVE NOTE DATE OF OPERATION: 10/03/2020 PREOPERATIVE DIAGNOSIS: Right kidney and ureteral stones. POSTOPERATIVE DIAGNOSIS: Right kidney and ureteral stones. PROCEDURE: Cystoscopy, right ureteroscopy with laser lithotripsy and basket extraction of stones, right retrograde pyelogram with intraop interpretation of images, right ureteral stent placement. SURGEON: Bola Anderson MD REPLANTING MACHINE CREW: None. ANESTHESIA: General. OPERATIVE INDICATIONS: This is a 25-year-old female who was found to have three obstructing distal ureteral stones as well as additional stones inside her right kidney. She is brought to the operating room today for treatment. DESCRIPTION OF PROCEDURE: The patient was brought to the operating room and general anesthesia induced. Prophylactic antibiotics were infused. She was then placed in the dorsal lithotomy position and prepped and draped in usual sterile fashion. Rigid cystoscope was inserted in urethral meatus and advanced into the bladder. Guidewire was advanced up the right collecting system. I then went up the right collecting system with short semi-rigid ureteroscope and within the distal ureter three stones were seen with the largest one measuring around 7-8 mm in size. A 272 micron laser fiber was utilized to fragment the stones into smaller pieces and all of the stone fragments were removed using a basket. Once I confirmed all the stones were taken out of the ureter I then advanced a ureteral access sheath into right collecting system. The proximal ureter was very tortuous. The right kidney was severely dilated. I then examined all the calyces and two stones were seen inside the kidney each measuring around 3-4 mm in size. These stones were removed with a basket. A retrograde pyelogram was then performed and was notable for moderate to severe right hydronephrosis but no extravasation. I then withdrew the ureteroscope along with access sheath and no additional stones were seen in the ureter. I utilized a guidewire to advance a 6-Lith[place]ian x 22-32 cm JJ ureteral stent up the right collecting system. The wire was removed and there were adequate curls of the stent in right renal pelvis and bladder. The bladder was emptied of all fluids and this marked the conclusion of the procedure. The patient was taken out of the dorsal lithotomy position, awakened from anesthesia and transferred to the recovery room in stable condition. ESTIMATED BLOOD LOSS: 5 mL. COMPLICATIONS: None. SPECIMEN: Kidney stone fragments. PLAN: The patient will be watched overnight on the Hospitalist Service. Assuming she feels well tomorrow and there are no signs of infection she can be discharged home. She will follow up in the clinic in a few weeks for stent removal. LANDY
--- NOTE | 2020-10-04 08:37 | REP ---
INDICATION: RIGHT URETERAL CALCULI. COMPARISON: CT AP 10/03/2020 TECHNIQUE: Two views from C-arm fluoroscopy provided to Dr. Anderson of the urology division. FINDINGS: Initial image shows catheter in to the proximal ureter a wire extending up into the upper pole calyx of the right kidney. Small amount of contrast in mildly dilated calices noted. Second image shows a double pigtail ureteral stent coiled proximally in the renal pelvis and distally in the bladder on the right side. Most of the contrast in the collecting system as drained. IMPRESSION: 1. Status post right internal ureteral stent placement. 2. Fluoroscopy time: 19 seconds. <Electronically signed by Raj Galvez > 10/04/20 0848
--- NOTE | 2020-10-04 08:37 | DS.PDOC ---
Discharge Summary General Date of Admission Oct 03, 2020 at 18:13 Date of Discharge 10/04/20 Attending Physician: ANDREW RANDALL MD Specialist/Consultants Involve: ZACH PUGA MD Discharge Summary PROCEDURES PERFORMED DURING STAY: Cystoscopy, right ureteroscopy, laser lithotripsy and basket extraction of stones, right retrograde pyelogram with intraop interpretation of images, right ureteral stent placement. ADMITTING DIAGNOSES / DISCHARGE DIAGNOSES: Hydronephrosis s/p removal of right kidney and ureteral stones w/ stent placement COMPLICATIONS/CHIEF COMPLAINT: Right sided flank pain HISTORY OF PRESENT ILLNESS: Lulú is 25F who presented to ED 10/03/20 w/ right flank pain that began 4days prior and had been worsening. She described pain as sharp, 8-10/10, radiating to right back and right abd, which was well-controlled in ED. Reported associated nausea, bilious vomiting, diarrhea, hematuria, frequent voiding w/out dysuria. CT abd/pelvis significant for right sided hydronephrosis and multiple stones. Uro was consulted for surgical recommendations. HOSPITAL COURSE: Pt admitted w/ plan to go to OR 10/03/20 for stone removal and possible stent placement. Preop and postop pain controlled w/ Morphine PRN, Percocet PRN. Ceftriaxone given preop. Dr. Puga removed stones and placed right sided stent. Pt tolerated surgery well and admitting sx improved 10/04/20. No signs of infxn postop. Case was discussed with neurology. Patient will be discharged home with Percocet and a course of ciprofloxacin prophylactically. Patient has been advised to follow-up with her primary care provider, and urology within the next 7 days/ DISCHARGE MEDICATIONS: Please see below. ALLERGIES: Please see below. PHYSICAL EXAMINATION ON DISCHARGE: VITAL SIGNS: Please see below. GENERAL: sitting up in bed, awake and alert, NAD HEENT: NC/AT, EOMI, nares patent, moist mucous membranes NECK: supple, no lymphadenopathy CARDIOVASCULAR EXAMINATION: normal heart sounds, RRR, no MRG RESPIRATORY EXAMINATION: CTA b/l, no WRR, no accessory muscles used ABDOMINAL EXAMINATION: hypoactive BS, soft, nontender, nondistended EXTREMITIES: no edema SKIN: no rashes/bruising/wounds NEUROLOGICAL EXAMINATION: no FND PSYCHIATRIC EXAMINATION: AOx3, normal mood/affect LABORATORY DATA: Please see below. IMAGING: CT abd/pelvis: 1. Large distal right ureterolith as described above. 2. Evidence of 2 additional calculi at the level of the right ureterovesical junction. 3. Right-sided hydronephrosis and hydroureter secondary to the aforementioned obstructive phenomena. 4. Multiple bilateral nephroliths and having the appearance of medullary sponge kidney. 5. Other findings as described above. PROGNOSIS: good ACTIVITY: As tolerated DIET: regular DISCHARGE PLAN: Hydronephrosis - Ciprofloxacin x4days -Percocet PRN x3days -F/u w/ urology as per schedule - F/u w/ PCP, 7-10days DISPOSITION: home DISCHARGE INSTRUCTIONS: 1. F/u w/ PCP 7-10 days 2. F/u w/ urology as per schedule 3. Continue Cipro as postop prophylaxis, 4days ITEMS TO FOLLOWUP ON ON OUTPATIENT: 1. Urology stent removal DISCHARGE CONDITION: Stable TIME SPENT ON DISCHARGE: 35 minutes. Vital Signs/I&Os Vital Signs Date Time Temp Pulse Resp B/P (MAP) Pulse Ox O2 Delivery O2 Flow Rate FiO2 10/04/20 08:18 18 10/04/20 06:00 98.3 96 111/66 (81) 96 Room Air 10/03/20 20:55 2.0 I&O- Last 24 Hours up to 6 AM 10/04/20 05:59 Intake Total 3663 ml Output Total 650 ml Balance 3013 ml Laboratory Data Labs 24H Laboratory Tests 2 10/03/20 14:08: POC Beta HCG, Quantitative < 5.0 10/03/20 14:16: Immature Granulocyte % (Auto) 0.4, Neutrophils (%) (Auto) 89.2H, Lymphocytes (%) (Auto) 5.4L, Monocytes (%) (Auto) 4.6, Eosinophils (%) (Auto) 0.1, Basophils (%) (Auto) 0.3, Neutrophils # (Auto) 14.2H, Lymphocytes # (Auto) 0.9L, Monocytes # (Auto) 0.7, Eosinophils # (Auto) 0.0, Basophils # (Auto) 0.1, Nucleated Red B lood Cells % (auto) 0.0, Anion Gap 9, Glomerular Filtration Rate > 60.0, Calcium Level 8.8, Total Bilirubin 1.6H, Direct Bilirubin 0.3H, Aspartate Amino Transf (AST/SGOT) 19, Alanine Aminotransferase (ALT/SGPT) 27, Alkaline Phosphatase 134H, Total Protein 7.2, Albumin 4.1, Albumin/Globulin Ratio 1.3, Lipase 62L 10/03/20 16:31: Urine Color YELLOW, Urine Appearance CLOUDYH, Urine pH 7.0, Urine Specific [place] 1.017, Urine Protein 1+H, Urine Glucose (UA) NEGATIVE, Urine Ketones 2+H, Urine Blood 1+H, Urine Nitrite NEGATIVE, Urine Bilirubin NEGATIVE, Urine Urobilinogen 4.0H, Urine Leukocyte Esterase NEGATIVE, Urine WBC (Auto) 13H, Urine RBC (Auto) 43H, Urine Hyaline Casts (Auto) 0, Urine Bacteria (Auto) 1+H, Urine Squamous Epithelial Cells 9, Urine Mucus (Auto) MODERATE, Urine Sperm (Auto) 10/03/20 17:30: Coronavirus (COVID-19)(PCR) NEGATIVE, Influenza Type A (RT-PCR) NEGATIVE, Influenza Type B (RT-PCR) NEGATIVE, Respiratory Syncytial Virus (PCR) NEGATIVE 10/03/20 21:07: Lactic Acid Level 2.3*H 10/04/20 01:29: Lactic Acid Followup at 4 Hours 0.6 10/04/20 06:28: Immature Granulocyte % (Auto) 0.3, Neutrophils (%) (Auto) 90.9H, Lymphocytes (%) (Auto) 6.8L, Monocytes (%) (Auto) 1.9L, Eosinophils (%) (Auto) 0.0, Basophils (%) (Auto) 0.1, Neutrophils # (Auto) 8.0, Lymphocytes # (Auto) 0.6L, Monocytes # (Auto) 0.2, Eosinophils # (Auto) 0.0, Basophils # (Auto) 0.0, Nucleated Red Blood Cells % (auto) 0.0, Anion Gap 7L, Glomerular Filtration Rate > 60.0, Calcium Level 8.4L, Magnesium Level 2.1 CBC/BMP Laboratory Tests 10/03/20 14:16 10/04/20 06:28 Microbiology Microbiology 10/03/20 Blood Culture, Received Pending 10/03/20 Blood Culture, Received Pending 10/03/20 Urine Culture, Received Pending Discharge Medications Scheduled Ciprofloxacin HCl (Cipro) 250 Mg Tablet, 1 TAB PO BID Multivitamins (Thera M Plus Tablet) 1 Each Tablet, 1 TAB PO DAILY, (Reported) [Collagen] , 1 SCOOP PO DAILY, (Reported) Scheduled PRN Oxycodone/Acetaminophen (Oxycodone-Acetaminophen 5-325) 1 Each Tablet, 1 TAB PO Q6HP PRN for MODERATE PAIN (PS 5-7) . Allergies Coded Allergies: scallops (Verified Allergy, Severe, anaphylaxis, 04/15/20) Gold Salts (Verified Allergy, Mild, RASH, 04/15/20) GME ATTESTATION GME ATTESTATION My faculty preceptor for this patient encounter was physically present during the encounter and was fully available. All aspects of the patient interview, examination, medical decision making process, and medical care plan development were reviewed and approved by the faculty preceptor. The faculty preceptor is aware and concurs with the plan as stated in the body of this note and will attest to such by his/her cosignature. ATTENDING NOTE I, Andrew Randall, have independently examined this patient and performed my own physical exam, as well as reviewed the documentation and edited where necessary. I have discussed in detail with the resident / student the findings and plan of treatment as documented by the resident / student and edited their note. I agree with their findings and treatment plan and have edited their documentation. I will continue to follow the patient during this hospital stay. Time spent on discharge 35 minutes Esperanza Massey DO Oct 04, 2020 08:37 ANDREW RANDALL MD Oct 04, 2020 14:20
[2020-10-04 10:00] VITALS: BP 101/58
[2020-10-04] MEDS ORDERED: PERCOCET PO ×2 (10:04→10:10)
[2020-10-04] MEDS ORDERED: CIPR-250 PO (10:04)
--- NOTE | 2020-10-04 10:08 | IPNPDOC ---
Subjective Review oF Systems Chief Complaint The patient is a 25-year-old female admitted with a reason for visit of Hydronephrosis Right, Ureterolithiasis. Events since Last Encounter No acute events o/n. Notes mild to moderate R flank pain w/ voiding, but this is tolerable. No n/v since surgery. No f/c/ns. Objective Physical Examination General Exam: Alert, Cooperative, No Acute Distress ABDOMEN EXAM: Soft; No: Tenderness Skin Exam: Nl turgor and temperature Neuro Exam: Normal Speech Psych Exam: Mental status NL, Mood NL Vital Signs/I&O Vital Signs Date Time Temp Pulse Resp B/P (MAP) Pulse Ox O2 Delivery O2 Flow Rate FiO2 10/04/20 08:18 18 10/04/20 06:00 98.3 96 111/66 (81) 96 Room Air 10/03/20 20:55 2.0 I&O- Last 24 Hours up to 6 AM 10/04/20 06:00 Intake Total 4196 ml Output Total 1050 ml Balance 3146 ml Laboratory Data Labs 24H Laboratory Tests 2 10/03/20 14:08: POC Beta HCG, Quantitative < 5.0 10/03/20 14:16: Immature Granulocyte % (Auto) 0.4, Neutrophils (%) (Auto) 89.2H, Lymphocytes (%) (Auto) 5.4L, Monocytes (%) (Auto) 4.6, Eosinophils (%) (Auto) 0.1, Basophils (%) (Auto) 0.3, Neutrophils # (Auto) 14.2H, Lymphocytes # (Auto) 0.9L, Monocytes # (Auto) 0.7, Eosinophils # (Auto) 0.0, Basophils # (Auto) 0.1, Nucleated Red Blood Cells % (auto) 0.0, Anion Gap 9, Glomerular Filtration Rate > 60.0, Calcium Level 8.8, Total Bilirubin 1.6H, Direct Bilirubin 0.3H, Aspartate Amino Transf (AST/SGOT) 19, Alanine Aminotransferase (ALT/SGPT) 27, Alkaline Phosphatase 134H, Total Protein 7.2, Albumin 4.1, Albumin/Globulin Ratio 1.3, Lipase 62L 10/03/20 16:31: Urine Color YELLOW, Urine Appearance CLOUDYH, Urine pH 7.0, Urine Specific [place] 1.017, Urine Protein 1+H, Urine Glucose (UA) NEGATIVE, Urine Ketones 2+H, Urine Blood 1+H, Urine Nitrite NEGATIVE, Urine Bilirubin NEGATIVE, Urine Urobilinogen 4.0H, Urine Leukocyte Esterase NEGATIVE, Urine WBC (Auto) 13H, Urine RBC (Auto) 43H, Urine Hyaline Casts (Auto) 0, Urine Bacteria (Auto) 1+H, Urine Squamous Epithelial Cells 9, Urine Mucus (Auto) MODERATE, Urine Sperm (Auto) 10/03/20 17:30: Coronavirus (COVID-19)(PCR) NEGATIVE, Influenza Type A (RT-PCR) NEGATIVE, Influenza Type B (RT-PCR) NEGATIVE, Respiratory Syncytial Virus (PCR) NEGATIVE 10/03/20 21:07: Lactic Acid Level 2.3*H 10/04/20 01:29: Lactic Acid Followup at 4 Hours 0.6 10/04/20 06:28: Immature Granulocyte % (Auto) 0.3, Neutrophils (%) (Auto) 90.9H, Lymphocytes (%) (Auto) 6.8L, Monocytes (%) (Auto) 1.9L, Eosinophils (%) (Auto) 0.0, Basophils (%) (Auto) 0.1, Neutrophils # (Auto) 8.0, Lymphocytes # (Auto) 0.6L, Monocytes # (Auto) 0.2, Eosinophils # (Auto) 0.0, Basophils # (Auto) 0.0, Nucleated Red Blood Cells % (auto) 0.0, Anion Gap 7L, Glomerular Filtration Rate > 60.0, Calcium Level 8.4L, Magnesium Level 2.1 CBC/BMP Laboratory Tests 10/03/20 14:16 10/04/20 06:28 Microbiology Microbiology 10/03/20 Blood Culture, Received Pending 10/03/20 Blood Culture, Received Pending 10/03/20 Urine Culture, Received Pending Assessment/Plan Date Seen The patient was seen on 10/04/20. Patient Summary This is a 25 y/o F POD1 s/p cysto, R ureteroscopy w/ laser lithotripsy and basket extraction of stones, R ureteral stent placement. Other than stent discomfort, she is doing well. Plan/VTE VTE Prophylaxis Ordered?: Yes VTE Exclusion Mechanical Proph: N/A:VTE Prophy Ordered Plan - ok for discharge from urologic standpoint - would recommend sending her home on cipro 500mg bid for at least 3 days - percocet as needed for stent discomfort - my office will arrange f/u for cysto and stent removal in a few wks ZACH PUGA MD Oct 04, 2020 10:08
== END 2020-10-04 12:42 | disposition home or self-care (01) | DRG 661 ==
LOC: M ED 12:24 → M ED INP 18:13 → M MSPAV 21:39
PROVIDERS: ADMIT Internal Medicine; ATTEND Internal Medicine
PROC: 0TC68ZZ Extirpation of Matter from Right Ureter, Via Natural or Artificial Opening Endoscopic (ICD-10-PCS; 2020-10-03)
PROC: 0T763DZ Dilation of Right Ureter with Intraluminal Device, Percutaneous Approach (ICD-10-PCS; 2020-10-03)
PROC: 0TC08ZZ Extirpation of Matter from Right Kidney, Via Natural or Artificial Opening Endoscopic (ICD-10-PCS; principal; 2020-10-03 18:30)
DX: N13.2 Hydronephrosis with renal and ureteral calculous obstruction (principal); Z20.822 Contact with and (suspected) exposure to COVID-19; Z91.013 Allergy to seafood; Z91.048 Other nonmedicinal substance allergy status